=== PATIENT | female | born 1985 | race Caucasian/White ===

== ENCOUNTER 2021-05-21 19:39 | Emergency (ER) | payer MEDICAID ==
[~2021-05-21] VITALS: Ht 149.9 cm; Wt 49.9 kg
[2021-05-21 20:18] VITALS: BP 123/78
--- NOTE | 2021-05-21 20:23 | NUR ---
PT AMBULATED TO RESTROOM AND BACK TO LOBBY.
--- NOTE | 2021-05-21 23:04 | NUR ---
ERMD ASSESSING PATIENT IN [place].
[2021-05-21] MEDS ORDERED: PRED20TA5 PO (23:29)
== END 2021-05-21 23:55 | disposition home or self-care (01) ==
LOC: MED 19:39
DX: J34.89 Other specified disorders of nose and nasal sinuses (principal); Z79.899 Other long term (current) drug therapy
CPT/HCPCS: 87070; 87075; 99283